=== PATIENT | female | born 1995 | race Two or more races ===

== ENCOUNTER 2023-01-28 20:31 | Emergency (ER) | payer OTHER ==
[~2023-01-28] VITALS: Ht 172.7 cm; Wt 130.2 kg
[2023-01-28] MEDS ORDERED: TENORMIN25 MG (20:54)
[2023-01-28] MEDS ORDERED: PRENA1 TRUE CO1 EACH (20:55)
[2023-01-28 22:01] LABS: HEMATOCRIT 37.6 % (36.0-45.00); HEMOGLOBIN 12.5 g/dL (12.0-15.00); MEAN CELL VOLUME 79.6 fL (80.00-100.00); MEAN CORPUSCULAR HEMOGLOBIN 26.4 pg (27.00-32.0); MEAN CORPUSCULAR HGB CONC 33.2 g/dl (32.0-36.0); PLATELET COUNT 247 K/uL (150-450); RED BLOOD COUNT 4.73 M/uL (4.00-6.00); RED CELL DISTRIBUTION WIDTH 14.4 % (11.5-14.5)
[2023-01-28 22:26] LABS: ANION GAP 8 (10.0-20.0); BLOOD UREA NITROGEN 7 mg/dL (7-18); BUN CREA RATIO 8 (7.0-25.0); CALCIUM 8.3 mg/dL (8.5-10.1); CARBON DIOXIDE 29 mEq/L (21-32); CHLORIDE 107 mmol/L (98-107); CREATININE SERUM 0.89 mg/dL (0.55-1.02); GFR 74.98; GLUCOSE FASTING 99 mg/dL (65-100); OSMOLALITY SERUM 279 MOSM/KG (275-295); POTASSIUM 3.45 mEq/L (3.5-5.1); SODIUM 141 mmol/L (136-145)
[2023-01-28 22:36] LABS: HCG QUANTITATIVE < 1 mUI/mL (1-3)
[2023-01-29 01:05] LABS: PH,URINE 5.5 (5.0-8.0); URINE APPEARANCE Clear; URINE BILIRRUBIN Negative (NEGATIVE); URINE BLOOD Moderate; URINE COLOR Yellow; URINE GLUCOSE Negative (NEGATIVE); URINE LEUKOCYTE Trace; URINE NITRATE Negative; URINE PROTEIN Negative (NEGATIVE)
[2023-01-29 01:09] LABS: URINE BACTERIA 1137.6 uL (0.0-1933); URINE RBC 27.5 uL (0.0-20.8); URINE WBC 32.7 uL (0.0-23.2)
[2023-01-29] MEDS ORDERED: CEPHALEXIN500 MG PO (03:24)
[2023-01-29] MEDS ORDERED: KETO10TA2 PO (03:24)
== END 2023-01-29 03:41 ==
LOC: ER 20:32
PROVIDERS: General Practice
DX: O26.892 Other specified pregnancy related conditions, second trimester (principal); Z3A.15 15 weeks gestation of pregnancy; R10.2 Pelvic and perineal pain

== ENCOUNTER 2024-03-05 21:17 | Emergency (ER) | payer OTHER ==
[~2024-03-05] VITALS: Ht 172.7 cm; Wt 123.4 kg
[~2024-03-05 21:17] MED LIST: CEPHALEXIN500 MG PO; KETO10TA2 PO; PRENA1 TRUE CO1 EACH; TENORMIN25 MG
[2024-03-05] MEDS ORDERED: DEXAMETHASONE SODIUM PHOSPHATE 4 MG/ML VIAL IM ONE (23:15)
[2024-03-05] MEDS ORDERED: KETOROLAC TROMETHAMINE 60 MG VIAL IM ONE ×2 (23:15→23:38)
[2024-03-05] MEDS ORDERED: DEXAMETHASONE SODIUM PHOSPHATE 4 MG/ML VIAL ONE (23:38)
[2024-03-06] MEDS ORDERED: IBU600 MG PO (00:23)
== END 2024-03-06 01:38 | disposition home or self-care (01) ==
LOC: ER 21:19
DX: M77.8 Other enthesopathies, not elsewhere classified (principal); Z91.013 Allergy to seafood